=== PATIENT | male | born 2005 | race Caucasian/White ===

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

== ENCOUNTER 2023-12-04 17:19 | Emergency (ER) | payer OTHER, SELFPAY ==
[2023-12-04] MEDS ORDERED: Ketorolac Tromethamine 30 MG (1 mL) VIAL ONE (18:13)
== END 2023-12-04 18:30 | disposition home or self-care (01) ==
LOC: ERS 17:19
DX: K08.89 Other specified disorders of teeth and supporting structures (principal); F17.290 Nicotine dependence, other tobacco product, uncomplicated
CPT/HCPCS: 96372; 99283; J1885

== ENCOUNTER 2024-11-12 10:46 | Emergency (ER) | payer SELFPAY ==
[2024-11-12] MEDS ORDERED: Fluorescein Opthalmic Strip ONE (12:21)
[2024-11-12] MEDS ORDERED: Proparacaine 0.5% Opth 15 ML BOT ONE (12:23)
[2024-11-12] MEDS ORDERED: Boostrix 0.5 ML (Tdap) VIAL (>/=7 yrs of age) ONE (12:49)
== END 2024-11-12 13:12 | disposition home or self-care (01) ==
LOC: ERS 10:46
DX: T15.02XA Foreign body in cornea, left eye, initial encounter (principal); F17.290 Nicotine dependence, other tobacco product, uncomplicated; Z23 Encounter for immunization; W44.E0XA Non-magnetic metal object unspecified, entering into or through a natural orifice, initial encounter; Y93.89 Activity, other specified; Y92.69 Other specified industrial and construction area as the place of occurrence of the external cause
CPT/HCPCS: 65205; 90471; 90715

== ENCOUNTER 2024-12-08 06:40 | Emergency (ER) | payer SELFPAY ==
[2024-12-08] MEDS ORDERED: Acetaminophen 500 MG TAB ONE (07:41)
[2024-12-08] MEDS ORDERED: Ketorolac Tromethamine 30 MG (1 mL) VIAL ONE (07:41)
[2024-12-08] MEDS ORDERED: Ondansetron ODT 4 MG TAB ONE (08:29)
== END 2024-12-08 08:34 | disposition home or self-care (01) ==
LOC: ERS 06:40
DX: J06.9 Acute upper respiratory infection, unspecified (principal); F17.290 Nicotine dependence, other tobacco product, uncomplicated
CPT/HCPCS: 87428; 96372; 99283; J1885; Q0162